=== PATIENT | female | born 1995 | race Caucasian/White ===

== ENCOUNTER 2022-06-29 19:36 | Emergency (ER) | payer OTHER ==
[~2022-06-29] VITALS: Ht 170.2 cm; Wt 95.3 kg
[~2022-06-29 19:36] MED LIST: ZANTAC150 MG PO
== END 2022-06-29 20:57 | disposition home or self-care (01) ==
LOC: ER 19:36
DX: L98.498 Non-pressure chronic ulcer of skin of other sites with other specified severity (principal)